=== PATIENT | male | born 2000 | race Caucasian/White ===

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

== ENCOUNTER → 2023-11-17 | Outpatient (CLI) | payer MEDICAID, OTHER | LOC: M WHC 13:05 | PROVIDERS: ATTEND Physician Assistant | DX: N45.1 Epididymitis (principal) ==